=== PATIENT | female | born 1950 | race Two or more races ===

== ENCOUNTER 2022-12-17 05:59 | Day surgery (SDC) | payer OTHER ==
[~2022-12-17] VITALS: Ht 160 cm; Wt 84.4 kg
[~2022-12-17 05:59] MED LIST: B12 ACTIVE1000 MCG PO; BACTRIM DS TAB1 EACH PO; D3 + K2 DOTS 11 EACH PO; DICLOFENAC SODI50 MG; DICLOFENAC-MIS1 EAC1 PO; DILTIAZEM ER120 M2 PO; FAMOTIDINE20 MG; GABAPENTIN800 M1 PO; INTEGRA PLUS C1 EACH PO; LANOXIN125 MCG PO; OXYC1TAB9 PO; PREDNISOLONE ACE5 ML; PROTONIX40 MG PO; VITAMIN C100 MG PO; XARELTO10 MG PO
[2022-12-17] MEDS ORDERED: OXYC1TAB9 PO (10:38)
[2022-12-17] MEDS ORDERED: DUI500 PO (10:38)
== END 2022-12-17 16:10 | disposition home or self-care (01) ==
LOC: CIR.AMB 05:59
PROVIDERS: ATTEND Orthopaedic Surgery Sports Medicine
DX: M24.561 Contracture, right knee (principal); I10 Essential (primary) hypertension; G62.9 Polyneuropathy, unspecified